=== PATIENT | female | born 1970 | race American Indian/Alaskan Native ===

== ENCOUNTER 2017-01-02 15:11 | Emergency (ER) | payer OTHER ==
[2017-01-02] MEDS ORDERED: TORADOL IM ONE (19:41)
[2017-01-02] MEDS ORDERED: FLEXERIL PO ONE (19:41)
[2017-01-02] MEDS ORDERED: NORCO 5/325 PO ONE (19:41)
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
[2017-01-02 20:46] VITALS: BP 128/89
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
== END 2017-01-02 20:55 | disposition home or self-care (01) ==
LOC: ED 15:11
DX: S16.1XXA Strain of muscle, fascia and tendon at neck level, initial encounter (principal); S29.012A Strain of muscle and tendon of back wall of thorax, initial encounter; M25.511 Pain in right shoulder; I10 Essential (primary) hypertension; J45.909 Unspecified asthma, uncomplicated; Z90.710 Acquired absence of both cervix and uterus; V89.2XXA Person injured in unspecified motor-vehicle accident, traffic, initial encounter; Y92.488 Other paved roadways as the place of occurrence of the external cause; Y93.89 Activity, other specified; Y99.8 Other external cause status
CPT/HCPCS: 72125; 73030; 96372; 99284; J1885